=== PATIENT | female | born 1930 | race Caucasian/White ===

== ENCOUNTER 2017-07-08 13:17 | Inpatient (IN) | payer OTHER, MEDICARE ==
[~2017-07-08] VITALS: Ht 144.8 cm; Wt 49.0 kg
[~2017-07-08 13:17] MED LIST: ACT30 PO; AMLO-110 PO; AMLO-114 PO; ASPEC81 PO; CALC500C3 PO; CRG25 PO; INSDGI SC; LCTX PO; METR-163 PO; MULT-506 PO; OXYC-57 PO; SIMV10TA2 PO; SITA100T3 PO
[2017-07-08] MEDS ORDERED: ASPI81TA28 PO (14:33)
[2017-07-08] MEDS ORDERED: ACT/30 PO (14:33)
[2017-07-08] MEDS ORDERED: CARV25TA2 PO (14:33)
[2017-07-08] MEDS ORDERED: INSDGIPEN SC (14:33)
--- NOTE | 2017-07-08 15:17 | DIAGNOSTIC IMAGING REPORT ---
HEAD WITHOUT CONTRAST (CT) CLINICAL HISTORY: 87 years-old Female with fall 1 week ago. Acute head injury status post fall TECHNIQUE: Multiple axial CT images of the head were obtained without contrast. A dose lowering technique was utilized adhering to the principles of ALARA. COMPARISON: CT cervical spine of same day, CT head 07/04/2010 FINDINGS: No acute intracranial hemorrhage, midline shift, intracranial mass, hydrocephalus, territorial ischemia or abnormal extra-axial collection. Moderate atrophy with chronic migraines ischemic changes. Calcification of the tentorium and falx cerebri. The calvarium is intact. The paranasal sinuses, mastoid air cells, and middle ear cavities are clear.a questioned fracture involving the right posterior arch C1. IMPRESSION: 1. No acute intracranial abnormality. 2. Questioned acute fracture involving the right posterior arch C1. Please see CT cervical spine of same day for further details. The above report was generated using voice recognition software. It may contain grammatical, syntax or spelling errors. Electronically signed by: Joey Green M.D. 07/08/2017 3:15 PM Dictated Date/Time: 07/08/2017 3:12 PM
--- NOTE | 2017-07-08 15:22 | DIAGNOSTIC IMAGING REPORT ---
CT SCAN OF THE CERVICAL SPINE CLINICAL HISTORY: Fall one week ago. COMPARISON STUDY: CT scan of the facial bones dated 07/04/2010. TECHNIQUE: CT scan of the cervical spine is performed from the skull base to the upper thoracic spine. Images are reviewed in the axial, sagittal, and coronal planes. IV contrast was not administered for this examination. A dose lowering technique was utilized adhering to the principles of ALARA. CT DOSE: 897.34 mGy.cm FINDINGS: Skeletal structures: The skeletal structures are osteopenic. There is a minimally angulated fracture through the base of the odontoid process (type II). Additionally, there are fractures through the right and left ring of C1. Vertebral body height is maintained. There is 3 mm anterolisthesis at C4-C5. Minimal anterolisthesis is also seen at C5-C6 and C6-C7. Mild hyperlordosis is noted. The odontoid process and lateral masses are intact. The atlantoaxial articulation is preserved noting productive degenerative change with narrowing of the interval. The spinous processes appear intact. There is moderate to advanced multilevel cervical spondylosis. Uncovertebral and facet arthropathy contribute sterile foraminal stenosis at most levels. Intervertebral discs: Advanced disc space narrowing is seen at C5-C6 and C6-C7. Mild disc space narrowing is seen at the remaining cervical levels. Central canal: Posterior discussed by complex is at C4-C5 and C5-C6 likely contribute to mild acquired compromise of the central canal. Soft tissues: The prevertebral and paraspinous soft tissues are within normal limits. There is atherosclerotic calcification of the carotid bulbs. Calvarium: The visualized calvarium at the skull base appears intact. Brain parenchyma: Partially visualized brain parenchyma the skull base is within normal limits. Sinuses and mastoids: The visualized paranasal sinuses are clear. The mastoid air cells are well pneumatized. Lung apices: A calcified granuloma is noted in the right upper lobe. Apical lung parenchyma is otherwise clear as visualized. IMPRESSION: 1. There is a minimally angulated fracture through the base of the odontoid process (type II odontoid fracture). 2. There are fractures involving the right and left ring of C1. 3. Osteopenia and spondylotic change as above. Findings were discussed with Dr. Alvarez in the emergency department at the time of interpretation. Electronically signed by: Brian Zarate M.D. 07/08/2017 3:21 PM Dictated Date/Time: 07/08/2017 3:10 PM
--- NOTE | 2017-07-08 15:39 | DIAGNOSTIC IMAGING REPORT ---
CHEST 2 VIEWS ROUTINE HISTORY: 87 years-old Female fall 1 week ago acute fall with head injury COMPARISON: Chest radiograph 11/06/2010 TECHNIQUE: Portable AP and lateral views of the chest FINDINGS: Cardiac silhouette is enlarged. Atherosclerosis of the aorta. Lungs are mildly hypoinflated with bronchovascular crowding. Calcifications of the trachea bronchial tree are noted. No pneumothorax, pleural effusion, focal airspace consolidation or overt pulmonary edema. The bones appear osteoporotic. Degenerative changes noted within the shoulders and spine. IMPRESSION: Hypoinflation with bronchovascular crowding. No acute process of the chest identified. The above report was generated using voice recognition software. It may contain grammatical, syntax or spelling errors. Electronically signed by: Joey Green M.D. 07/08/2017 3:38 PM Dictated Date/Time: 07/08/2017 3:37 PM
--- NOTE | 2017-07-08 15:42 | DIAGNOSTIC IMAGING REPORT ---
SINGLE VIEW PELVIS CLINICAL HISTORY: Fall. FINDINGS: An AP pelvic radiograph is correlated with pelvic CT dated 11/06/2010. The skeletal structures are osteopenic. There is no radiographic evidence of fracture involving the hips or bony pelvis. Mild to moderate arthritic change and joint space narrowing is present in the hips. Sclerotic change is identified in the sacroiliac joints. Lumbosacral spondylosis is partially visualized. The overlying soft tissues are normal in appearance. Advanced atherosclerotic calcification is observed in the femoral arteries. Pelvic calcifications are similar to previous. IMPRESSION: Osteopenia with no radiographic evidence of acute fracture involving the hips or bony pelvis. Electronically signed by: Brian Zarate M.D. 07/08/2017 3:40 PM Dictated Date/Time: 07/08/2017 3:39 PM
--- NOTE | 2017-07-08 15:54 | DIAGNOSTIC IMAGING REPORT ---
LUMBAR SPINE 5 VIEWS CLINICAL HISTORY: Fall. FINDINGS: 5 views of the lumbar spine are correlated with abdominal CT dated 11/06/2010. The skeletal structures are osteopenic. There is no radiographic evidence of acute fracture or malalignment. Vertebral body height and alignment are maintained throughout the lumbar spine. There is straightening of the lumbar lordosis. The transverse and spinous processes appear intact. There is no evidence of spondylolysis. Advanced disc space narrowing with endplate sclerosis is seen at L4-L5. Moderate disc space narrowing seen at L5-S1. Mild disc space narrowing is seen at the remaining lumbar levels. Tiny anterior osteophytes are seen throughout. The bony pelvis is intact as imaged. Sclerotic change is identified in the sacroiliac joints. No bowel obstruction is identified. There is atherosclerotic calcification throughout the abdominal aorta. IMPRESSION: 1. No acute bony abnormality is seen involving the lumbar spine. 2. Osteopenia and spondylotic change as above. Dictated: 07/08/2017 3:36 PM Transcribed: 07/08/2017 3:54 PM [email or web address] Electronically signed by: Brian Zarate M.D. 07/08/2017 3:59 PM Dictated Date/Time: 07/08/2017 3:36 PM
[2017-07-08] MEDS ORDERED: MoRPHine SULFATE 4 MG/ML 1 ML CARP\\VIAL IV STA (16:04)
--- NOTE | 2017-07-08 16:04 | EMERGENCY ROOM VISIT NOTE ---
History First contact with patient: 13:49 Chief Complaint: FALL Stated Complaint: FALL, HEAD INJURY History of Present Illness The patient is a 87 year old female who presents to the Emergency Room with complaints of h/o mechanical fall 9 days ago. Reports walking with her cane to her bathroom at 0630 on Jun 29, tripped on the cane and hit her head on her sink and fell to the floor. Reports she was down for 3 hours, and finally scooted herself over to her phone in her bedroom and called her niece. Her niece , who is at bedside today, came and helped her to a chair, but reports pt didn' t complain of much and so they decided not to seek medical attention. Niece has been coming to pt's home since and helping with bathing, etc, and noted a " goose egg" on the top of her scalp and increasing bruising on pt's forehead. Niece reports yesterday noting that pt's walking was prohibited by her increasing pain in her lower back, and so decided to make an appt with the PCP. At appt today, PCP urged pt to seek attention at the ED for possible fractures. Pt's main complaint is pain in her lower back. Denies LOC, chest pain, SOB, melena or hematuria. Reports subjective decrease in urination and change in color of urine from clear to light yellow of late. Pt denies being on blood thinners. Review of Systems See HPI for pertinent positives and negatives. Past Medical/Surgical History Medical Problems: (1) Cervical vertebral closed fracture (2) Fall (3) HTN (hypertension) Social History Smoking Status: Never Smoker Marital Status: single Housing Status: lives alone (in a [address] [facility]. Ambulates with walker on first floor, but goes up stairs with only a cane.) Occupation Status: retired Current/Historical Medications Scheduled Amlodipine (Norvasc), 5 MG PO DAILY Aspirin (Aspirin Ec), 81 MG PO DAILY Carvedilol (Coreg), 25 MG PO BID Insulin Glargine (Lantus Solostar), 8 UNITS SC QPM Multivitamin (Multivitamin), 1 TAB PO DAILY Pioglitazone Hcl (Actos), 30 MG PO DAILY Simvastatin (Zocor), 10 MG PO QPM Sitagliptin Phosphate (Januvia), 50 MG PO DAILY Physical Exam Vital Signs Date Time Temp Pulse Resp B/P (MAP) Pulse Ox O2 Delivery O2 Flow Rate FiO2 07/08/17 16:39 69 20 194/67 95 07/08/17 14:49 72 20 183/61 96 Room Air 07/08/17 13:27 36.9 70 20 177/62 100 Room Air Physical Exam GENERAL: Awake, alert, well-appearing, in no distress. HENT: ++3 cmx 3 cm hematoma on top of scalp noted, with 2mm scab. Bruising on forehead. Oropharynx unremarkable. ++C-spine tenderness. EYES: Normal conjunctiva. Sclera non-icteric. NECK: Supple. ++C-spine tenderness. No nuchal rigidity. FROM. No JVD. RESPIRATORY: Clear to auscultation. CARDIAC: Regular rate, normal rhythm. Extremities warm and well perfused. Pulses equal. ABDOMEN: Soft, non-distended. No tenderness to palpation. No rebound or guarding. No masses. RECTAL: Deferred. MUSCULOSKELETAL: Chest examination reveals no tenderness. The back is symmetrical on inspection without obvious abnormality. No joint edema. ++ Bruising on left upper arm. LOWER EXTREMITIES: Calves are equal size bilaterally and non-tender. No edema. No discoloration. NEURO: Normal sensorium. No sensory or motor deficits noted. SKIN: No rash or jaundice noted. Medical Decision & Procedures Laboratory Results 07/08/17 16:10 Red Blood Count 3.57, Mean Corpuscular Volume 79.0, Mean Corpuscular Hemoglobin 26.1, Mean Corpuscular Hemoglobin Concent 33.0, Mean Platelet Volume 9.0, Neutrophils (%) (Auto) 69.1, Lymphocytes (%) (Auto) 19.9, Monocytes (%) (Auto) 8.3, Eosinophils (%) (Auto) 1.8, Basophils (%) (Auto) 0.5, Neutrophils # (Auto) 6.55, Lymphocytes # (Auto) 1.89, Monocytes # (Auto) 0.79, Eosinophils # (Auto) 0.17, Basophils # (Auto) 0.05 07/08/17 16:10 Test 07/08/17 16:10 White Blood Count 9.49 K/uL (4.8-10.8) Red Blood Count 3.57 M/uL (4.2-5.4) Hemoglobin 9.3 g/dL (12.0-16.0) Hematocrit 28.2 % (37-47) Mean Corpuscular Volume 79.0 fL (80-100) Mean Corpuscular Hemoglobin 26.1 pg (25-34) Mean Corpuscular Hemoglobin Concent 33.0 g/dl (32-36) Platelet Count 259 K/uL (130-400) Mean Platelet Volume 9.0 fL (7.4-10.4) Neutrophils (%) (Auto) 69.1 % Lymphocytes (%) (Auto) 19.9 % Monocytes (%) (Auto) 8.3 % Eosinophils (%) (Auto) 1.8 % Basophils (%) (Auto) 0.5 % Neutrophils # (Auto) 6.55 K/uL (1.4-6.5) Lymphocytes # (Auto) 1.89 K/uL (1.2-3.4) Monocytes # (Auto) 0.79 K/uL (0.11-0.59) Eosinophils # (Auto) 0.17 K/uL (0-0.5) Basophils # (Auto) 0.05 K/uL (0-0.2) RDW Standard Deviation 45.9 fL (36.4-46.3) RDW Coefficient of Variation 15.8 % (11.5-14.5) Immature Granulocyte % (Auto) 0.4 % Immature Granulocyte # (Auto) 0.04 K/uL (0.00-0.02) Prothrombin Time 11.4 SECONDS (9.0-12.0) Prothromb Time International Ratio 1.1 (0.9-1.1) Activated Partial Thromboplast Time 25.0 SECONDS (21.0-31.0) Partial Thromboplastin Ratio 1.0 Anion Gap 9.0 mmol/L (3-11) Est Creatinine Clear Calc Drug Dose 22.2 ml/min Estimated GFR () 48.3 Estimated GFR (Non- 41.7 BUN/Creatinine Ratio 20.8 (10-20) Calcium Level 9.2 mg/dl (8.5-10.1) Medications Administered Medications (Trade) Dose Ordered Sig/Nusrat Route Start Time Stop Time Status Last Admin Dose Admin Morphine Sulfate (MoRPHine SULFATE INJ) 4 mg NOW STAT IV 07/08/17 16:04 07/08/17 16:06 DC 07/08/17 16:[address] SCAN OF THE CERVICAL SPINE CLINICAL HISTORY: Fall one week ago. COMPARISON STUDY: CT scan of the facial bones dated 07/04/2010. TECHNIQUE: CT scan of the cervical spine is performed from the skull base to the upper thoracic spine. Images are reviewed in the axial, sagittal, and coronal planes. IV contrast was not administered for this examination. A dose lowering technique was utilized adhering to the principles of ALARA. CT DOSE: 897.34 mGy.cm FINDINGS: Skeletal structures: The skeletal structures are osteopenic. There is a minimally angulated fracture through the base of the odontoid process (type II). Additionally, there are fractures through the right and left ring of C1. Vertebral body height is maintained. There is 3 mm anterolisthesis at C4-C5. Minimal anterolisthesis is also seen at C5-C6 and C6-C7. Mild hyperlordosis is noted. The odontoid process and lateral masses are intact. The atlantoaxial articulation is preserved noting productive degenerative change with narrowing of the interval. The spinous processes appear intact. There is moderate to advanced multilevel cervical spondylosis. Uncovertebral and facet arthropathy contribute sterile foraminal stenosis at most levels. Intervertebral discs: Advanced disc space narrowing is seen at C5-C6 and C6-C7. Mild disc space narrowing is seen at the remaining cervical levels. Central canal: Posterior discussed by complex is at C4-C5 and C5-C6 likely contribute to mild acquired compromise of the central canal. Soft tissues: The prevertebral and paraspinous soft tissues are within normal limits. There is atherosclerotic calcification of the carotid bulbs. Calvarium: The visualized calvarium at the skull base appears intact. Brain parenchyma: Partially visualized brain parenchyma the skull base is within normal limits. Sinuses and mastoids: The visualized paranasal sinuses are clear. The mastoid air cells are well pneumatized. Lung apices: A calcified granuloma is noted in the right upper lobe. Apical lung parenchyma is otherwise clear as visualized. IMPRESSION: 1. There is a minimally angulated fracture through the base of the odontoid process (type II odontoid fracture). 2. There are fractures involving the right and left ring of C1. 3. Osteopenia and spondylotic change as above. Findings were discussed with Dr. Alvarez in the emergency department at the time of interpretation. Electronically signed by: Brian Zarate M.D. 07/08/2017 3:21 PM CHEST 2 VIEWS ROUTINE HISTORY: 87 years-old Female fall 1 week ago acute fall with head injury COMPARISON: Chest radiograph 11/06/2010 TECHNIQUE: Portable AP and lateral views of the chest FINDINGS: Cardiac silhouette is enlarged. Atherosclerosis of the aorta. Lungs are mildly hypoinflated with bronchovascular crowding. Calcifications of the trachea bronchial tree are noted. No pneumothorax, pleural effusion, focal airspace consolidation or overt pulmonary edema. The bones appear osteoporotic. Degenerative changes noted within the shoulders and spine. IMPRESSION: Hypoinflation with bronchovascular crowding. No acute process of the chest identified. The above report was generated using voice recognition software. It may contain grammatical, syntax or spelling errors. Electronically signed by: Joey Green M.D. 07/08/2017 3:38 PM Dictated Date/Time: 07/08/2017 3:37 PM - HEAD WITHOUT CONTRAST (CT) CLINICAL HISTORY: 87 years-old Female with fall 1 week ago. Acute head injury status post fall TECHNIQUE: Multiple axial CT images of the head were obtained without contrast. A dose lowering technique was utilized adhering to the principles of ALARA. COMPARISON: CT cervical spine of same day, CT head 07/04/2010 FINDINGS: No acute intracranial hemorrhage, midline shift, intracranial mass, hydrocephalus, territorial ischemia or abnormal extra-axial collection. Moderate atrophy with chronic migraines ischemic changes. Calcification of the tentorium and falx cerebri. The calvarium is intact. The paranasal sinuses, mastoid air cells, and middle ear cavities are clear.a questioned fracture involving the right posterior arch C1. IMPRESSION: 1. No acute intracranial abnormality. 2. Questioned acute fracture involving the right posterior arch C1. Please see CT cervical spine of same day for further details. The above report was generated using voice recognition software. It may contain grammatical, syntax or spelling errors. Electronically signed by: Joey Green M.D. 07/08/2017 3:15 PM Dictated Date/Time: 07/08/2017 3:12 PM - LUMBAR SPINE 5 VIEWS CLINICAL HISTORY: Fall. FINDINGS: 5 views of the lumbar spine are correlated with abdominal CT dated 11/06/2010. The skeletal structures are osteopenic. There is no radiographic evidence of acute fracture or malalignment. Vertebral body height and alignment are maintained throughout the lumbar spine. There is straightening of the lumbar lordosis. The transverse and spinous processes appear intact. There is no evidence of spondylolysis. Advanced disc space narrowing with endplate sclerosis is seen at L4-L5. Moderate disc space narrowing seen at L5-S1. Mild disc space narrowing is seen at the remaining lumbar levels. Tiny anterior osteophytes are seen throughout. The bony pelvis is intact as imaged. Sclerotic change is identified in the sacroiliac joints. No bowel obstruction is identified. There is atherosclerotic calcification throughout the abdominal aorta. IMPRESSION: 1. No acute bony abnormality is seen involving the lumbar spine. 2. Osteopenia and spondylotic change as above. Dictated: 07/08/2017 3:36 PM Transcribed: 07/08/2017 3:54 PM [facility] Electronically signed by: Brian Zarate M.D. 07/08/2017 3:59 PM Dictated Date/Time: 07/08/2017 3:36 PM - SINGLE VIEW PELVIS CLINICAL HISTORY: Fall. FINDINGS: An AP pelvic radiograph is correlated with pelvic CT dated 11/06/2010. The skeletal structures are osteopenic. There is no radiographic evidence of fracture involving the hips or bony pelvis. Mild to moderate arthritic change and joint space narrowing is present in the hips. Sclerotic change is identified in the sacroiliac joints. Lumbosacral spondylosis is partially visualized. The overlying soft tissues are normal in appearance. Advanced atherosclerotic calcification is observed in the femoral arteries. Pelvic calcifications are similar to previous. IMPRESSION: Osteopenia with no radiographic evidence of acute fracture involving the hips or bony pelvis. Electronically signed by: Brian Zarate M.D. 07/08/2017 3:40 PM Dictated Date/Time: 07/08/2017 3:39 PM ED Course 1349 saw and assessed pt [id number] of head w/o contrast, CT of C spine, xray pelvix and lumbosacral , CXR. UA. CT shows fracture of C1 and C2. Attending d/w ortho Dr. Lawson. Surgery not indicated at this time due to risk/benefit consideration. D/w pt - pt requests assistance with recovery, not comfortable going home as she lives by herself. Decision made to admit given pt's limited ambulation due to pain, and will be seen by Dr. Lawson while on inpatient. And arrangements will be made for inpatient rehab. Attending spoke with Dr. Yemi Fitzpatrick hospalist re: admission. Pt being admitted now. Medical Decision The patient is a 87 year old female who presents to the Emergency Room with complaints of h/o mechanical fall 9 days ago. Reports walking with her cane to her bathroom at 0630 on Jun 29, tripped on the cane and hit her head on her sink and fell to the floor. Reports she was down for 3 hours, and finally scooted herself over to her phone in her bedroom and called her niece. Her niece , who is at bedside today, came and helped her to a chair, but reports pt didn' t complain of much and so they decided not to seek medical attention. Niece has been coming to pt's home since and helping with bathing, etc, and noted a " goose egg" on the top of her scalp and increasing bruising on pt's forehead. Niece reports yesterday noting that pt's walking was prohibited by her increasing pain in her lower back, and so decided to make an appt with the PCP. At appt today, PCP urged pt to seek attention at the ED for possible fractures. Pt's main complaint is pain in her lower back. Denies LOC, chest pain, SOB, melena or hematuria. Reports subjective decrease in urination and change in color of urine from clear to light yellow of late. Pt denies being on blood thinners. DDX: fall, contusion, fracture of c-spine CT shows minimally angulated fracture through the base of the odontoid process ( type II), and fractures through the right and left ring of C1. Other imaging of chest, lumbar spine, head CT and pelvis all non-remarkable. Labs unremarkable except for moderate anemia. Decision made to admit given pt's uncontrolled pain and limited ambulation. Likely this patient will benefit from detention care and may not be able to return to her [address] [facility] home and live by herself anymore - she ambulates with a walker on the first floor, but only with a cane on the second floor. Given that while ambulating with a cane is when she tripped, accommodations may need to be made on a detention basis. Impression Primary Impression: C1 cervical fracture Additional Impressions: Odontoid fracture Fall Departure Information Dispostion Admitted as an inpatient (via [facility] service) Condition GOOD Patient Instructions My [facility] Resident Tracking Resident Involvement: Resident Care Provided Care Provided: Adult ED Problem Qualifiers
[2017-07-08 16:22] LABS: BASO % 0.5 %; BASO ABS # 0.05 K/uL (0-0.2); EOS % 1.8 %; EOS ABS # 0.17 K/uL (0-0.5); HEMATOCRIT 28.2 % (37-47); HEMOGLOBIN 9.3 g/dL (12.0-16.0); IG# 0.04 K/uL (0.00-0.02); LYMPH % 19.9 %; LYMPH ABS # 1.89 K/uL (1.2-3.4); MEAN CORPUSCULAR HEMOGLOBIN 26.1 pg (25-34); MONO % 8.3 %; MONO ABS # 0.79 K/uL (0.11-0.59); NEUT % 69.1 %; NEUT ABS # 6.55 K/uL (1.4-6.5); PLATELET COUNT 259 K/uL (130-400); RED CELL DISTRIBUTION WIDTH CV 15.8 % (11.5-14.5); RED CELL DISTRIBUTION WIDTH SD 45.9 fL (36.4-46.3); WHITE BLOOD COUNT 9.49 K/uL (4.8-10.8)
[2017-07-08 16:30] LABS: INR 1.1 (0.9-1.1)
[2017-07-08 16:41] LABS: CALCIUM 9.2 mg/dl (8.5-10.1); CREATININE 1.16 mg/dl (0.60-1.20); POTASSIUM 4.4 mmol/L (3.5-5.1)
--- NOTE | 2017-07-08 17:07 | EMERGENCY ROOM VISIT NOTE ---
History Report prepared by Luciano: Manish Santamaria Under the Supervision of: Dr. Lewis Alvarez M.D. First contact with patient: 13:48 Chief Complaint: FALL Stated Complaint: FALL, HEAD INJURY History of Present Illness The patient is a 87 year old female who presents to the Emergency Room with complaints of h/o mechanical fall 9 days ago. Reports walking with her cane to her bathroom at 0630 on Jun 29, tripped on the cane and hit her head on her sink and fell to the floor. Reports she was down for 3 hours, and finally scooted herself over to her phone in her bedroom and called her niece. Her niece , who is at bedside today, came and helped her to a chair, but reports pt didn' t complain of much and so they decided not to seek medical attention. Niece has been coming to pt's home since and helping with bathing, etc, and noted a " goose egg" on the top of her scalp and increasing bruising on pt's forehead. Niece reports yesterday noting that pt's walking was prohibited by her increasing pain in her lower back, and so decided to make an appt with the PCP. At appt today, PCP urged pt to seek attention at the ED for possible fractures. Pt's main complaint is constant pain in her lower back. Denies LOC, chest pain, SOB, melena or hematuria. Reports subjective decrease in urination and change in color of urine from clear to light yellow of late. Pt denies being on blood thinners. Source of History: patient, family (daughter) Onset: 9 days ago Quality: other (mechanical fall) Timing: other (episode) Associated Symptoms: + back pain (lower), + urinary symptoms (decreased output, change in color), No LOC, No chest pain, No melena Note: The patient denies hematuria. Review of Systems See HPI for pertinent positives and negatives. A total of ten systems were reviewed and were otherwise negative. Past Medical & Surgical Medical Problems: (1) Cervical vertebral closed fracture (2) Fall (3) HTN (hypertension) Family History No pertinent family history stated. Social History Smoking Status: Never Smoker Marital Status: single Occupation Status: retired Current/Historical Medications Scheduled Amlodipine (Norvasc), 5 MG PO DAILY Aspirin (Aspirin Ec), 81 MG PO DAILY Carvedilol (Coreg), 25 MG PO BID Insulin Glargine (Lantus Solostar), 8 UNITS SC QPM Multivitamin (Multivitamin), 1 TAB PO DAILY Pioglitazone Hcl (Actos), 30 MG PO DAILY Simvastatin (Zocor), 10 MG PO QPM Sitagliptin Phosphate (Januvia), 50 MG PO DAILY Allergies Coded Allergies: Sulfa Drugs (Verified Allergy, Unknown, unknown, 01/07/12) Physical Exam Vital Signs Date Time Temp Pulse Resp B/P (MAP) Pulse Ox O2 Delivery O2 Flow Rate FiO2 07/08/17 16:39 69 20 194/67 95 07/08/17 14:49 72 20 183/61 96 Room Air 07/08/17 13:27 36.9 70 20 177/62 100 Room Air Physical Exam GENERAL: Awake, alert, well-appearing, in no distress HENT: Normocephalic. Hematoma noted to the posterior head without active bleeding. no hemotympanum bilaterally, mccormick sign negative bilaterally. Oropharynx unremarkable. EYES: Normal conjunctiva. Sclera non-icteric. PERRL bilaterally. EOMI bilaterally. NECK: Supple. No nuchal rigidity. FROM. No JVD. C-spine tenderness to palpation. RESPIRATORY: Clear to auscultation. No wheezes, rhonchi or rales bilaterally. CARDIAC: Regular rate, normal rhythm. Extremities warm and well perfused. Equal palpable radial pulses to the bilateral upper extremities. Equal palpable DP pulses to the bilateral lower extremities. ABDOMEN: Soft, non-distended. No tenderness to palpation. No rebound or guarding. No masses. Rovsig Negative. RECTAL: Deferred. MUSCULOSKELETAL: Chest examination reveals no tenderness. Ecchymosis over left shoulder. The back is symmetrical on inspection without obvious abnormality. No thoracic or lumbar spine tenderness to palpation. Pelvis is stable to compression. There is no CVA tenderness to palpation. No joint edema. LOWER EXTREMITIES: Calves are equal size bilaterally and non-tender. No edema. No discoloration. NEURO: Normal sensorium. No sensory or motor deficits noted. No pronator drift. No facial droop. No dysarthria. Strength 5 out of 5 bilateral upper extremities. SKIN: No rash or jaundice noted. Medical Decision & Procedures ER Provider Diagnostic Interpretation: Radiology results as stated below per my review and radiologist interpretation: SINGLE VIEW PELVIS FINDINGS: An AP pelvic radiograph is correlated with pelvic CT dated 11/06/2010. The skeletal structures are osteopenic. There is no radiographic evidence of fracture involving the hips or bony pelvis. Mild to moderate arthritic change and joint space narrowing is present in the hips. Sclerotic change is identified in the sacroiliac joints. Lumbosacral spondylosis is partially visualized. The overlying soft tissues are normal in appearance. Advanced atherosclerotic calcification is observed in the femoral arteries. Pelvic calcifications are similar to previous. IMPRESSION: Osteopenia with no radiographic evidence of acute fracture involving the hips or bony pelvis. Electronically signed by: Brian Zarate M.D. 07/08/2017 3:40 PM LUMBAR SPINE 5 VIEWS FINDINGS: 5 views of the lumbar spine are correlated with abdominal CT dated 11/06/2010. The skeletal structures are osteopenic. There is no radiographic evidence of acute fracture or malalignment. Vertebral body height and alignment are maintained throughout the lumbar spine. There is straightening of the lumbar lordosis. The transverse and spinous processes appear intact. There is no evidence of spondylolysis. Advanced disc space narrowing with endplate sclerosis is seen at L4-L5. Moderate disc space narrowing seen at L5-S1. Mild disc space narrowing is seen at the remaining lumbar levels. Tiny anterior osteophytes are seen throughout. The bony pelvis is intact as imaged. Sclerotic change is identified in the sacroiliac joints. No bowel obstruction is identified. There is atherosclerotic calcification throughout the abdominal aorta. IMPRESSION: 1. No acute bony abnormality is seen involving the lumbar spine. 2. Osteopenia and spondylotic change as above. Dictated: 07/08/2017 3:36 PM Transcribed: 07/08/2017 3:54 PM [facility] Electronically signed by: Brian Zarate M.D. 07/08/2017 3:59 PM HEAD WITHOUT CONTRAST (CT) FINDINGS: No acute intracranial hemorrhage, midline shift, intracranial mass, hydrocephalus, territorial ischemia or abnormal extra-axial collection. Moderate atrophy with chronic migraines ischemic changes. Calcification of the tentorium and falx cerebri. The calvarium is intact. The paranasal sinuses, mastoid air cells, and middle ear cavities are clear.a questioned fracture involving the right posterior arch C1. IMPRESSION: 1. No acute intracranial abnormality. 2. Questioned acute fracture involving the right posterior arch C1. Please see CT cervical spine of same day for further details. The above report was generated using voice recognition software. It may contain grammatical, syntax or spelling errors. Electronically signed by: Joey Green M.D. 07/08/2017 3:15 PM CHEST 2 VIEWS ROUTINE FINDINGS: Cardiac silhouette is enlarged. Atherosclerosis of the aorta. Lungs are mildly hypoinflated with bronchovascular crowding. Calcifications of the trachea bronchial tree are noted. No pneumothorax, pleural effusion, focal airspace consolidation or overt pulmonary edema. The bones appear osteoporotic. Degenerative changes noted within the shoulders and spine. IMPRESSION: Hypoinflation with bronchovascular crowding. No acute process of the chest identified. The above report was generated using voice recognition software. It may contain grammatical, syntax or spelling errors. Electronically signed by: Joey Green M.D. 07/08/2017 3:[address] SCAN OF THE CERVICAL SPINE FINDINGS: Skeletal structures: The skeletal structures are osteopenic. There is a minimally angulated fracture through the base of the odontoid process (type II). Additionally, there are fractures through the right and left ring of C1. Vertebral body height is maintained. There is 3 mm anterolisthesis at C4-C5. Minimal anterolisthesis is also seen at C5-C6 and C6-C7. Mild hyperlordosis is noted. The odontoid process and lateral masses are intact. The atlantoaxial articulation is preserved noting productive degenerative change with narrowing of the interval. The spinous processes appear intact. There is moderate to advanced multilevel cervical spondylosis. Uncovertebral and facet arthropathy contribute sterile foraminal stenosis at most levels. Intervertebral discs: Advanced disc space narrowing is seen at C5-C6 and C6-C7. Mild disc space narrowing is seen at the remaining cervical levels. Central canal: Posterior discussed by complex is at C4-C5 and C5-C6 likely contribute to mild acquired compromise of the central canal. Soft tissues: The prevertebral and paraspinous soft tissues are within normal limits. There is atherosclerotic calcification of the carotid bulbs. Calvarium: The visualized calvarium at the skull base appears intact. Brain parenchyma: Partially visualized brain parenchyma the skull base is within normal limits. Sinuses and mastoids: The visualized paranasal sinuses are clear. The mastoid air cells are well pneumatized. Lung apices: A calcified granuloma is noted in the right upper lobe. Apical lung parenchyma is otherwise clear as visualized. IMPRESSION: 1. There is a minimally angulated fracture through the base of the odontoid process (type II odontoid fracture). 2. There are fractures involving the right and left ring of C1. 3. Osteopenia and spondylotic change as above. Findings were discussed with Dr. Alvarez in the emergency department at the time of interpretation. Electronically signed by: Brian Zarate M.D. 07/08/2017 3:21 PM Laboratory Results 07/08/17 16:10 Red Blood Count 3.57, Mean Corpuscular Volume 79.0, Mean Corpuscular Hemoglobin 26.1, Mean Corpuscular Hemoglobin Concent 33.0, Mean Platelet Volume 9.0, Neutrophils (%) (Auto) 69.1, Lymphocytes (%) (Auto) 19.9, Monocytes (%) (Auto) 8.3, Eosinophils (%) (Auto) 1.8, Basophils (%) (Auto) 0.5, Neutrophils # (Auto) 6.55, Lymphocytes # (Auto) 1.89, Monocytes # (Auto) 0.79, Eosinophils # (Auto) 0.17, Basophils # (Auto) 0.05 07/08/17 16:10 Test 07/08/17 16:10 White Blood Count 9.49 K/uL (4.8-10.8) Red Blood Count 3.57 M/uL (4.2-5.4) Hemoglobin 9.3 g/dL (12.0-16.0) Hematocrit 28.2 % (37-47) Mean Corpuscular Volume 79.0 fL (80-100) Mean Corpuscular Hemoglobin 26.1 pg (25-34) Mean Corpuscular Hemoglobin Concent 33.0 g/dl (32-36) Platelet Count 259 K/uL (130-400) Mean Platelet Volume 9.0 fL (7.4-10.4) Neutrophils (%) (Auto) 69.1 % Lymphocytes (%) (Auto) 19.9 % Monocytes (%) (Auto) 8.3 % Eosinophils (%) (Auto) 1.8 % Basophils (%) (Auto) 0.5 % Neutrophils # (Auto) 6.55 K/uL (1.4-6.5) Lymphocytes # (Auto) 1.89 K/uL (1.2-3.4) Monocytes # (Auto) 0.79 K/uL (0.11-0.59) Eosinophils # (Auto) 0.17 K/uL (0-0.5) Basophils # (Auto) 0.05 K/uL (0-0.2) RDW Standard Deviation 45.9 fL (36.4-46.3) RDW Coefficient of Variation 15.8 % (11.5-14.5) Immature Granulocyte % (Auto) 0.4 % Immature Granulocyte # (Auto) 0.04 K/uL (0.00-0.02) Prothrombin Time 11.4 SECONDS (9.0-12.0) Prothromb Time International Ratio 1.1 (0.9-1.1) Activated Partial Thromboplast Time 25.0 SECONDS (21.0-31.0) Partial Thromboplastin Ratio 1.0 Anion Gap 9.0 mmol/L (3-11) Est Creatinine Clear Calc Drug Dose 22.2 ml/min Estimated GFR () 48.3 Estimated GFR (Non- 41.7 BUN/Creatinine Ratio 20.8 (10-20) Calcium Level 9.2 mg/dl (8.5-10.1) Laboratory results reviewed by me Medications Administered Medications (Trade) Dose Ordered Sig/Nusrat Route Start Time Stop Time Status Last Admin Dose Admin Morphine Sulfate (MoRPHine SULFATE INJ) 4 mg NOW STAT IV 07/08/17 16:04 07/08/17 16:06 DC 07/08/17 16:36 4 MG ED Course 1330: The patient was evaluated in room B7. A complete history and physical exam was performed. 1554: Discussed the patient's case with Dr. Lawson. He states that given the patient's age, lack of neurologic deficits, and fall occurring over a week ago, he would not normally do surgery on this kind of fracture. He states that the risk is often too great given her age and co-morbidities. I discussed this with the patient, who states that she does not feel comfortable going home alone. She would like to be placed in an acute care facility for fear of falling again. 1604: Ordered Morphine Sulfate Inj 4 mg IV. 1650: Patient's vital signs are stable. His labs are within normal limits. The patient to be admitted for possible LTAC placement because she does not feel comfortable going home to take care of her spinal fracture. She is concerned she will continue to fall. The patient will be seen by Ortho-spine tomorrow, though they do not plan on doing surgery at the moment. The patient will be admitted by the hospitalist service. Medical Decision Discussed the patient's case with Dr. Lawsno. He states that given the patient' s age, lack of neurologic deficits, and fall occurring over a week ago, he would not normally do surgery on this kind of fracture. He states that the risk is often too great given her age and co-morbidities. I discussed this with the patient, who states that she does not feel comfortable going home alone. She would like to be placed in an acute care facility for fear of falling again. Patient's vital signs are stable. His labs are within normal limits. The patient to be admitted for possible LTAC placement because she does not feel comfortable going home to take care of her spinal fracture. She is concerned she will continue to fall. The patient will be seen by Ortho-spine tomorrow, though they do not plan on doing surgery at the moment. The patient will be admitted by the hospitalist service. Medication Reconcilliation Current Medication List: was personally reviewed by me Blood Pressure Screening Patient's blood pressure: Elevated blood pressure Blood pressure disposition: Referred to PCP Consults Time Called: 1550 Consulting Physician: Dr. Lawson - Orthopedics Returned Call: [phone] Discussed the patient's case. Dr. Lawson states that given the patient's age, lack of neurologic deficits, and fall occurring over a week ago, he would not normally do surgery on this kind of fracture. He states that the risk is often too great given her age and co-morbidities. Additional Consults: Time Called: 1650 Consulted Physician: Dr. Yemi Fitzpatrick Hospitalist Returned Call: [phone] Additional Comments: Discussed the patient's case. The patient will be evaluated for further treatment and disposition. Impression Primary Impression: Odontoid fracture Additional Impressions: C1 cervical fracture Fall Scribe Attestation The scribe's documentation has been prepared under my direction and personally reviewed by me in its entirety. I confirm that the note above accurately reflects all work, treatment, procedures, and medical decision making performed by me. The chart was completed utilizing [employer] voice recognition software. Grammatical errors, random word insertions, pronoun errors, and incomplete sentences are an occasional consequence of this system due to software limitations, ambient noise, and hardware issues. Any formal questions or concerns about the content, text, or information contained within the body of this dictation should be directly addressed to the physician for clarification. Departure Information Dispostion Being Evaluated By Hospitalist Referrals Wilfred Burrell D.O. (PCP) Patient Instructions [facility] Problem Qualifiers
[2017-07-08] MEDS ORDERED: GLUCAGON FOR INJ 1 MG VIAL SQ PRN (17:15)
[2017-07-08] MEDS ORDERED: ALUMINUM/MAGNESIUM/SIMETH (MAALOX MAX) 30 ML UDC PO PRN (17:15)
[2017-07-08] MEDS ORDERED: GLUCOSE 40% GEL 15 GM TUBE PO PRN (17:15)
[2017-07-08] MEDS ORDERED: MoRPHine SULFATE 2 MG/ML CARP IV PRN (17:15)
[2017-07-08] MEDS ORDERED: DEXTROSE 50% 50 ML SYR IV PRN (17:15)
[2017-07-08] MEDS ORDERED: GLUCOSE 10 TABS/TUBE PO PRN (17:15)
[2017-07-08] MEDS ORDERED: MoRPHine SULFATE 4 MG/ML 1 ML CARP\\VIAL IV PRN (17:15)
[2017-07-08] MEDS ORDERED: ONDANSETRON INJ 2 MG/ML 2 ML VIAL IV PRN (17:15)
[2017-07-08] MEDS ORDERED: MAGNESIUM HYDROXIDE SUSP 30 ML UDC PO PRN (17:15)
[2017-07-08] MEDS ORDERED: POLYETHYLENE (MIRALAX) 17 GM PACK PO PRN (17:15)
[2017-07-08] MEDS ORDERED: SODIUM CHLORIDE 0.9% 1000ML 1,000 ML IV SCH (17:15)
[2017-07-08] MEDS ORDERED: ONDANSETRON INJ 2 MG/ML 2 ML VIAL ONE (17:39)
[2017-07-08 18:22] VITALS: BP 197/71; PULSE 73; TEMP 36.7; O2SAT 94
--- NOTE | 2017-07-08 18:42 | History and Physical ---
History & Physical Date & Time of Service: Jul 08, 2017 at 18:40 Chief Complaint: Cervical Vertebral Closed Fracture, Fall Primary Care Physician: Wilfred Burrell D.O. History of Present Illness Source: patient, family (niece at bedside) This is an 87yo F with PMH of DM II, HTN, CKD III, HLD and pernicious anemia who presents after a mechanical fall last 9 days ago. Patient lives alone and ambulates by cane. Was walking to the bathroom when her cane got caught and she fell onto the floor in a twisting motion, hitting her head on the counter and falling onto her backside. Was unable to get up from floor for 3 hours. Scooted herself into her bedroom phone to call her niece. It took her niece and another person to get patient back in bed. Reports that she was not in enough pain to see her PCP or go to the ED. Has been taking extra strength Tylenol for pain from fall. Noticed a bump form on her head but states that she did not have any headache or confusion. Has bruising on her left arm and back. Niece noticed that patient continued to seem generally weak, ambulating very slowly, so she made appointment with PCP. Patient was sent from the office for further evaluation. Endorses back and knee pain (chronic), generalized weakness, decreased PO intake and nausea. Had an episode of vomiting during our interview after being given morphine. Denies any fever, chills, lightheadedness, dizziness , headache, LOC, visual changes, palpitations, chest pain, SOB, abdominal pain, dysuria, melena, hematochezia or LE swelling. Denies being on blood thinners. Past Medical/Surgical History Medical Problems: (1) Chronic lower back pain Status: Chronic (2) CKD (chronic kidney disease), stage III Status: Chronic (3) Diabetes mellitus, type II Status: Chronic (4) HLD (hyperlipidemia) Status: Chronic (5) HTN (hypertension) Status: Chronic (6) Osteoarthritis Status: Chronic (7) Pernicious anemia Status: Chronic Family History Non-contributory due to patient's age. Social History Smoking Status: Never Smoker Alcohol Use: none Marital Status: single Housing status: lives alone Occupational Status: retired Immunizations History of Influenza Vaccine: N/A History of Tetanus Vaccine?: Yes Tetanus Immunization Date: Jul 09, 2010 History of Pneumococcal: Yes Pneumococcal Date: Mar 08, 2010 History of Hepatitis B Vaccine: Unknown Multi-Drug Resistant Organisms History of MDRO: No Allergies Coded Allergies: Sulfa Drugs (Verified Allergy, Unknown, unknown, 01/07/12) Home Medications Scheduled Amlodipine (Norvasc), 5 MG PO DAILY Aspirin (Aspirin Ec), 81 MG PO DAILY Calcium/Vitamin D (Os-[place]illy 500 Plus D), 1 TAB PO DAILY Carvedilol (Coreg), 1 TAB PO BIDM Cyanocobalamin (Cyanocobalamin), 1,000 MCG INJ MONTHLY Insulin Glargine (Lantus Solostar), 8 UNITS SC QPM Lactobacillus (Acidophilus), 1 CAP PO DAILY Lisinopril (Lisinopril), 1 TAB PO HS Multivitamin (Multivitamin), 1 TAB PO DAILY Pantoprazole (Protonix), 40 MG PO DAILY Repaglinide (Prandin), 2 MG PO AC Simvastatin (Zocor), 10 MG PO QPM Scheduled PRN Acetaminophen (Tylenol Extra Strength), 1 TAB PO Q6 PRN for Pain Review of Systems Ten systems reviewed and negative except as noted in the HPI. Physical Exam Vital Signs Date Time Temp Pulse Resp B/P (MAP) Pulse Ox O2 Delivery O2 Flow Rate FiO2 07/08/17 18:22 36.7 73 18 197/71 (113) 94 Room Air 07/08/17 17:34 69 20 194/67 95 07/08/17 16:39 69 20 194/67 95 07/08/17 14:49 72 20 183/61 96 Room Air 07/08/17 13:27 36.9 70 20 177/62 100 Room Air General Appearance: + mild distress, + pertinent finding (Sitting upright in med, breating comfortably) Head: normocephalic, atraumatic, + evidence of trama (Hematoma on posterior aspect of skull. Some bruising on L frontal region) Eyes: normal inspection, PERRL, sclerae normal ENT: normal ENT inspection (hard of hearing ), pharynx normal (moist mucous membranes ) Neck: + pertinent finding (C-collar ) Respiratory/Chest: chest non-tender, lungs clear, normal breath sounds, no respiratory distress, no accessory muscle use Cardiovascular: regular rate, rhythm, no murmur, normal peripheral pulses Abdomen/GI: non tender, soft, no organomegaly Back: normal inspection Extremities/Musculoskelatal: normal inspection, no calf tenderness, no pedal edema Neurologic/Psych: chiropractor assistant II-XII nml as tested, no motor/sensory deficits, alert, normal mood/affect, oriented x 3 Skin: warm/dry, no rash, + pallor, + pertinent finding (Bruising on L side of back, L arm. No deformities ) Diagnostics Laboratory Results Results Past 24 Hours Test 07/08/17 16:10 Range/Units White Blood Count 9.49 4.8-10.8 K/uL Red Blood Count 3.57 4.2-5.4 M/uL Hemoglobin 9.3 12.0-16.0 g/dL Hematocrit 28.2 37-47 % Mean Corpuscular Volume 79.0 80-100 fL Mean Corpuscular Hemoglobin 26.1 25-34 pg Mean Corpuscular Hemoglobin Concent 33.0 32-36 g/dl Platelet Count 259 130-400 K/uL Mean Platelet Volume 9.0 7.4-10.4 fL Neutrophils (%) (Auto) 69.1 % Lymphocytes (%) (Auto) 19.9 % Monocytes (%) (Auto) 8.3 % Eosinophils (%) (Auto) 1.8 % Basophils (%) (Auto) 0.5 % Neutrophils # (Auto) 6.55 1.4-6.5 K/uL Lymphocytes # (Auto) 1.89 1.2-3.4 K/uL Monocytes # (Auto) 0.79 0.11-0.59 K/uL Eosinophils # (Auto) 0.17 0-0.5 K/uL Basophils # (Auto) 0.05 0-0.2 K/uL RDW Standard Deviation 45.9 36.4-46.3 fL RDW Coefficient of Variation 15.8 11.5-14.5 % Immature Granulocyte % (Auto) 0.4 % Immature Granulocyte # (Auto) 0.04 0.00-0.02 K/uL Prothrombin Time 11.4 9.0-12.0 SECONDS Prothromb Time International Ratio 1.1 0.9-1.1 Activated Partial Thromboplast Time 25.0 21.0-31.0 SECONDS Partial Thromboplastin Ratio 1.0 Sodium Level 133 136-145 mmol/L Potassium Level 4.4 3.5-5.1 mmol/L Chloride Level 102 98-107 mmol/L Carbon Dioxide Level 22 21-32 mmol/L Anion Gap 9.0 3-11 mmol/L Blood Urea Nitrogen 24 7-18 mg/dl Creatinine 1.16 0.60-1.20 mg/dl Est Creatinine Clear Calc Drug Dose 22.2 ml/min Estimated GFR () 48.3 Estimated GFR (Non- 41.7 BUN/Creatinine Ratio 20.8 10-20 Random Glucose 104 70-99 mg/dl Calcium Level 9.2 8.5-10.1 mg/dl Diagnostic Radiology Head CT: IMPRESSION: 1. No acute intracranial abnormality. 2. Questioned acute fracture involving the right posterior arch C1. Please see CT cervical spine of same day for further details. CT cervical spine: IMPRESSION: 1. There is a minimally angulated fracture through the base of the odontoid process (type II odontoid fracture). 2. There are fractures involving the right and left ring of C1. 3. Osteopenia and spondylotic change as above. CXR: IMPRESSION: Hypoinflation with bronchovascular crowding. No acute process of the chest identified. Lumbar spine XR: IMPRESSION: 1. No acute bony abnormality is seen involving the lumbar spine. 2. Osteopenia and spondylotic change as above. Pelvic XR: IMPRESSION: Osteopenia with no radiographic evidence of acute fracture involving the hips or bony pelvis. Impression Assessment and Plan This is an 87yo F with PMH of DM II, HTN, CKD III, HLD and pernicious anemia who presents after a mechanical fall last 9 days ago. Patient lives alone and ambulates by cane. Cervical spine fractures: -S/p mechanical fall 9 days ago -CT cervical spine with odontoid and C1 fractures -CT head, lumbar spine and pelvis XR without acute abnormalities -Ortho-spine consulted -Given patient's age, lack of neuro deficits and length of time since fall, surgery is not indicated -Rehab facility placement since patient lives alone, at risk of falling again -Wear C-collar at all times besides eating -Will see patient tomorrow -Hold baby aspirin. SCDs/teds until evaluated by ortho -Neurovascular checks Q4 -PT/OT evaluation and conditioning -Scheduled IV tylenol -Discharge planning Nausea and vomiting: -Occurred after being administered morphine -Hold morphine, switched to IV tylenol give antiemetics PRN -Clear liquid diet HTN: -2/2 pain, anxiety -Unable to tolerate PO meds -Given IV hydralazine 10mg Q8 for SBP >160 -Plan to continue home meds in AM -Monitor DM II: -A1c of 8.7 on Jun 15 2017 -Continue home dose lantus 8U HS -Sliding scale -Hold prandin -BG checks AC HS Pernicious anemia: -Hgb of 9.49. Has been steadily downtrending from 11 -Could be contributing to generally weak state -Receives monthly B12 injections. Due for next on 07/16 CKD III: -Cr of 1.16, GFR of 42 (at baseline) -Avoid nephrotoxic agents when able -Monitor HLD: -Cont statin DVT Ppx: SCDs, teds Code status: DNR per discussion with patient PCP: Indra Dispo: Admitted to [facility]. Discharge planning ordered for rehab placement Patient seen in collaboration with Dr. Bragg. Please see addendum. ATTENDING ADDENDUM ; pt seen and examined, care co ordinated with Genny Li PA-C 87 yo f hx of recent fall ~9 days back , sent to ER by her family physician for concern for possible fx CT of cervical spine shows non displaced fx of C1/C2 odontoid process Fx C -collar placed Spinal orthopedics Dr Lawson consulted given advanced age, co -mobidities -recommends conservation management no emergent spinal surgery needed Admit to Medical fall fall precaution , cont cervical spine support with C Collar PT/OT may need rehab -lives alone , recent fall with cervical fx leading to significant ambulatory dysfunction /balance instability DNR/DNI please refer to Genny Li PA-C documentation for further documentation of other issues Hazel Brgag MD Level of Care Med/Surg Resuscitation Status DO NOT RESUSCITATE VTE Prophylaxis VTE Risk Assessment Done? Y/N: Yes Risk Level: Moderate Given or contraindicated: SCD's
[2017-07-08 18:56] VITALS: Ht 144.8 cm; Wt 49.0 kg
[2017-07-08] MEDS ORDERED: PROMETHAZINE HCL INJ 25 MG in SODIUM CHLORIDE 0.9% 50ML 50 ML IV STA (18:59)
[2017-07-08] MEDS ORDERED: CARVEDILOL 25 MG TAB PO ONE (19:00)
[2017-07-08] MEDS ORDERED: HydrALAZINE HCL 20 MG/ML VIAL IV. PRN (19:00)
[2017-07-08] MEDS ORDERED: AMLODIPINE BESYLATE 5 MG TAB PO ONE (19:00)
[2017-07-08] MEDS ORDERED: PROMETHAZINE HCL INJ 25 MG in SODIUM CHLORIDE 0.9% 50ML 50 ML IV PRN (19:00)
--- NOTE | 2017-07-08 19:07 | EMERGENCY ROOM VISIT NOTE ---
ED Visit Note First contact with patient: 13:48 The patient was seen and examined with Dr. Gonzalez resident. I agree with the history, physical and findings. Please see the note for disposition and details.
[2017-07-08] MEDS ORDERED: ACETAMINOPHEN IV 100 ML IV PRN (19:45)
[2017-07-08 20:14] VITALS: BP 163/67
[2017-07-08] MEDS ORDERED: REPA2TAB12 PO (20:24)
[2017-07-08] MEDS ORDERED: CALC500C70 PO (20:24)
[2017-07-08] MEDS ORDERED: CARV12.52 PO (20:24)
[2017-07-08] MEDS ORDERED: CYNI1000 INJ (20:24)
[2017-07-08] MEDS ORDERED: LSN20 PO (20:24)
[2017-07-08] MEDS ORDERED: ACET-1257 PO (20:24)
[2017-07-08] MEDS ORDERED: PANT40TA PO (20:24)
[2017-07-08] MEDS ORDERED: LACTCAP3 PO (20:24)
[2017-07-08] MEDS ORDERED: ACETAMINOPHEN IV 100 ML IV SCH (20:45)
[2017-07-08] MEDS: SIMVASTATIN 10 MG TAB PO SCH (21:00)
[2017-07-08] MEDS ORDERED: CARVEDILOL 25 MG TAB PO SCH (21:00)
[2017-07-08] MEDS: DOCUSATE SODIUM 100 MG CAP PO SCH (21:00)
[2017-07-08] MEDS ORDERED: LISINOPRIL 20 MG TAB PO SCH (21:00)
[2017-07-08] MEDS: INSULIN ASPART 100 UNITS/ML 3 ML PEN SC SCH (21:05)
[2017-07-08] MEDS: INSULIN GLARGINE SOLOSTAR 100 UNITS/ML 3 ML PEN SC SCH (21:08)
[2017-07-08] MEDS: ACETAMINOPHEN IV SCH (21:20)
[2017-07-08 23:16] VITALS: BP 163/67; PULSE 86; TEMP 36.4; O2SAT 97
[2017-07-09] MEDS: ACETAMINOPHEN IV SCH ×3 (05:23→20:54)
[2017-07-09 07:40] VITALS: BP 146/52; PULSE 72; TEMP 36.7; O2SAT 93
[2017-07-09] MEDS: INSULIN ASPART 100 UNITS/ML 3 ML PEN SC SCH ×4 (08:00→20:56)
[2017-07-09 08:25] VITALS: O2SAT 93
--- NOTE | 2017-07-09 08:53 | ORTHOPEDIC CONSULTATION ---
DATE OF ADMISSION: 07/09/2017 Approximately at 8:10 in the morning. HISTORY OF PRESENT ILLNESS: Nhung is delightful. She is 87 elderly female, a little hard of hearing. She had a reported fall walking to the bathroom, her cane got up. She fell to the floor. She hit her head. She hit her cervical spine. She was on the floor for several hours. She was able to get to the bathroom, get a hold of her knees. The patient was able to get the Emergency Room for evaluation and treatment. She does have a documented cervical spine injury with a C2 fracture, which is the odontoid all legitimate injuries. PAST MEDICAL HISTORY: Hard of hearing, chronic low back pain, stage III kidney disease, diabetes, hyperlipidemia, hypertension, pernicious anemia. SOCIAL HISTORY: Nonsmoker, single, lives alone, retired. MEDICATIONS: Reviewed. OBJECTIVE: VITAL SIGNS: Stable. Blood pressure is elevated at 190/70. Pulse is relatively regular at 80 beats per minute. HEENT: Pupils reactive to light and accommodation. Ear, nose and throat clear. I did take off the collar to inspect her. She had some residual tenderness, nothing out of the ordinary. NEUROLOGIC: Intact, 5/5 strength, good sensation, no motor neuron deficits. HEART AND LUNG: Normal. ABDOMEN: Soft and nontender. IMAGING STUDIES: Images reviewed demonstrated a minimally displaced type 2 odontoid fracture. There are fractures involving the ring on the left of C1. There is some osteopenia. There is some subluxation at the L4-L5 region, cervical spine, chronic. IMPRESSION: Includes a delightful patient with multiple comorbidities, elderly, hard of hearing, lives alone. She has a cervical spine injury as dictated. PLAN: I think the admission is absolutely the appropriate pathway. It would be unsafe to send her home for an assortment of reasons. I am treating her with a cervical collar. It is fairly rigid. I think we can get by without a surgical intervention. If there is a change in her neurological status, which can be subtle or a change in her radiographic findings as well such as a worsening of her C2 injury, then she may require a surgical intervention. I will be away Wednesday and Wednesday of this weekend. If she has a gross deterioration of her neurological issue, then she would need to be transferred from [facility] to [facility] or [facility]. [facility]
[2017-07-09] MEDS ORDERED: SITAGLIPTIN 25 MG TAB PO SCH (09:00)
[2017-07-09 09:19] LABS: HEMATOCRIT 27.3 % (37-47); HEMOGLOBIN 8.8 g/dL (12.0-16.0); MEAN CELL VOLUME 80.5 fL (80-100); MEAN CORPUSCULAR HGB CONC 32.2 g/dl (32-36); MEAN PLATELET VOLUME 9.1 fL (7.4-10.4); PLATELET COUNT 262 K/uL (130-400); RED CELL DISTRIBUTION WIDTH SD 46.8 fL (36.4-46.3); WHITE BLOOD COUNT 9.09 K/uL (4.8-10.8)
[2017-07-09] MEDS: MULTIVITAMIN TAB PO SCH (09:23)
[2017-07-09] MEDS: AMLODIPINE BESYLATE 5 MG TAB PO SCH (09:24)
[2017-07-09] MEDS: PANTOprazole SOD 40 MG TAB PO SCH (09:25)
[2017-07-09] MEDS: CALCIUM 600MG + VIT D 400 IU TAB PO SCH (09:25)
[2017-07-09] MEDS: CARVEDILOL 12.5 MG TAB PO SCH ×2 (09:25→18:18)
[2017-07-09] MEDS: DOCUSATE SODIUM 100 MG CAP PO SCH ×2 (09:25→20:49)
[2017-07-09 09:39] LABS: CALCIUM 8.6 mg/dl (8.5-10.1); CREATININE 1.01 mg/dl (0.60-1.20); POTASSIUM 4.4 mmol/L (3.5-5.1)
[2017-07-09 15:34] VITALS: BP 137/60; PULSE 60; TEMP 36.7; O2SAT 89
[2017-07-09 18:15] VITALS: O2SAT 94
--- NOTE | 2017-07-09 19:13 | PROGRESS NOTE ---
DATE: 07/09/2017 Ada is resting comfortably tonight with her cervical spine collar in place. Taking p.o. Minimal complaints of pain. She looks remarkably improved. Neurologically intact. Vital signs stable. Images reviewed. IMPRESSION: An 87-year-old female with type 2 odontoid fracture plus fracture of C1, nondisplaced, and some degenerative changes. PLAN: Because of her other comorbidities and age, we will treat her nonoperatively. We will keep her on the collar, this may come off to eat. I anticipate her being discharged to a rehab/[facility] type facility tomorrow, 07/10/2017, probably 07/11/2017, and might have to wait until even Wednesday. We can get her up and ambulatory. I have written orders for physical therapy, occupational therapy, and again hopefully discharge from the acute care facility here in the next 24-48 hours. I should see her back in the office in the next week. The office number is [phone]. The patient or custody of the patient should call that number to make the followup appointment. Once again, the collar should be worn at all times except to be taken off to eat and for some basic hygiene.
--- NOTE | 2017-07-09 20:08 | Progress Note ---
Internal Med Progress Note Date of Service: Jul 09, 2017. Provider Documentation: SUBJECTIVE: on neck collar says has some soreness in her lower back but otherwise no pain no chest pain or sob 'afebrile no nausea seems comfortable somewhat hard of hearing OBJECTIVE: Vital Signs-as noted below Exam: General-alert and oriented. Not in distress. Old and frail ENT-hard of hearing Neck-in rigid collar Lungs-cta b/l no wheezing or crackles Heart-S 1 and S 2heard regular rate and rhythm no murmurs Abdomen-soft bowel sounds present non tender no distension Extremities-no edema no erythema Neuro-alert and awake moves extremities Lab data as noted below. ASSESSMENT & PLAN: This is an 87yo F with PMH of DM II, HTN, CKD III, HLD and pernicious anemia who presents after a mechanical fall last 9 days ago. Patient lives alone and ambulates by cane. Cervical spine fractures: S/p mechanical fall [address] cervical spine with odontoid and C1 fractures CT head, lumbar spine and pelvis XR unremarkable -Ortho-spine consulted and recommends conservative approach on neck collar to keep it all times except while eating or basic hygiene pt/ot await placement Ortho wants to followup as out patient - Nausea and vomiting: Occurred after being administered morphine Held morphine and switched to IV tylenol give antiemetics PRN currently on full liquid diet to advance as tolerated. HTN: 2/2 pain, anxiety home meds lisinopril, coreg and amlodipine 'iv hydralazine prn will monitor DM II: A1c of 8.7 on Jun 15 2017 on home dose lantus 8U HS Sliding scale Holding prandin will monitor Pernicious anemia: Hgb of 9.49. Has been steadily downtrending from 11 Receives monthly B12 injections. Due for next on 07/16 f/u labs CKD III: Cr of 1.16, GFR of 42 (at baseline) f/u labs HLD: on statin DVT Ppx: SCDs, teds Code status: DNR per admission DISPOSITION pt/ot plan for placement social service for d/c planning Vital Signs: Date Time Temp Pulse Resp B/P (MAP) Pulse Ox O2 Delivery O2 Flow Rate FiO2 07/09/17 16:15 Room Air 07/09/17 15:34 36.7 60 16 137/60 (85) 89 Room Air 60 07/09/17 08:25 93 Room Air 07/09/17 07:40 36.7 72 14 146/52 (83) 93 Room Air 07/09/17 07:30 Room Air 07/09/17 00:15 Room Air 07/08/17 23:16 36.4 86 15 163/67 (99) 97 Room Air 07/08/17 20:14 163/67 (99) Lab Results: Results Past 24 Hours Test 07/08/17 20:26 07/09/17 00:00 07/09/17 08:13 07/09/17 08:19 Range/Units Bedside Glucose 228 81 70-90 mg/dl Urine Color YELLOW Urine Appearance CLEAR CLEAR Urine pH 5.0 4.5-7.5 Urine Specific [place] 1.010 1.000-1.030 Urine Protein NEG NEG Urine Glucose (UA) NEG NEG Urine Ketones NEG NEG Urine Occult Blood NEG NEG Urine Nitrite NEG NEG Urine Bilirubin NEG NEG Urine Urobilinogen NEG NEG Urine Leukocyte Esterase NEG NEG White Blood Count 9.09 4.8-10.8 K/uL Red Blood Count 3.39 4.2-5.4 M/uL Hemoglobin 8.8 12.0-16.0 g/dL Hematocrit 27.3 37-47 % Mean Corpuscular Volume 80.5 80-100 fL Mean Corpuscular Hemoglobin 26.0 25-34 pg Mean Corpuscular Hemoglobin Concent 32.2 32-36 g/dl RDW Standard Deviation 46.8 36.4-46.3 fL RDW Coefficient of Variation 16.0 11.5-14.5 % Platelet Count 262 130-400 K/uL Mean Platelet Volume 9.1 7.4-10.4 fL Sodium Level 136 136-145 mmol/L Potassium Level 4.4 3.5-5.1 mmol/L Chloride Level 105 98-107 mmol/L Carbon Dioxide Level 23 21-32 mmol/L Anion Gap 8.0 3-11 mmol/L Blood Urea Nitrogen 22 7-18 mg/dl Creatinine 1.01 0.60-1.20 mg/dl Est Creatinine Clear Calc Drug Dose 25.5 ml/min Estimated GFR () 57.2 Estimated GFR (Non- 49.3 BUN/Creatinine Ratio 21.8 10-20 Random Glucose 73 70-99 mg/dl Calcium Level 8.6 8.5-10.1 mg/dl Test 07/09/17 11:53 07/09/17 17:03 Range/Units Bedside Glucose 119 130 70-90 mg/dl
[2017-07-09] MEDS: SIMVASTATIN 10 MG TAB PO SCH (20:50)
[2017-07-09] MEDS: LISINOPRIL 20 MG TAB PO SCH (20:50)
[2017-07-09] MEDS: INSULIN GLARGINE SOLOSTAR 100 UNITS/ML 3 ML PEN SC SCH (20:57)
[2017-07-09 22:58] VITALS: BP 154/58; PULSE 56; TEMP 36.8; O2SAT 95
[2017-07-10] MEDS: ACETAMINOPHEN IV SCH ×2 (05:19→14:41)
[2017-07-10 07:02] VITALS: BP 180/64; PULSE 66; TEMP 36.8; O2SAT 97
[2017-07-10] MEDS: AMLODIPINE BESYLATE 5 MG TAB PO SCH (07:37)
[2017-07-10] MEDS: PANTOprazole SOD 40 MG TAB PO SCH (07:37)
[2017-07-10] MEDS: CARVEDILOL 12.5 MG TAB PO SCH ×2 (07:37→18:31)
[2017-07-10 08:26] LABS: CALCIUM 9.3 mg/dl (8.5-10.1); CREATININE 0.98 mg/dl (0.60-1.20); POTASSIUM 4.6 mmol/L (3.5-5.1)
[2017-07-10] MEDS: CALCIUM 600MG + VIT D 400 IU TAB PO SCH (09:34)
[2017-07-10] MEDS: DOCUSATE SODIUM 100 MG CAP PO SCH ×2 (09:34→21:23)
[2017-07-10] MEDS: INSULIN ASPART 100 UNITS/ML 3 ML PEN SC SCH ×4 (09:41→21:28)
[2017-07-10] MEDS: MULTIVITAMIN TAB PO SCH (09:54)
--- NOTE | 2017-07-10 10:11 | PROGRESS NOTE ---
DATE: 07/10/2017 CHIEF COMPLAINT: Type 2 odontoid fracture. PROGRESS: Nhung was seen and examined at bedside today. She was sitting up and eating breakfast. She had her C-collar off while she was eating. She said she still has some pain in her neck, but overall she was doing fairly well. She has no new complaints. PHYSICAL EXAMINATION: She has a bandage under her chin to prevent rubbing on the cervical collar. Cervical collar was off at this time. I did not do any range of motion of her neck. IMPRESSION: Type 2 odontoid fracture. PLAN: She will need to be in the cervical collar at all times except while eating for simple hygiene. Will give this a chance to heal on its own. She can follow up in the office with my partner Dr. Lawson also, his phone number is [phone]. She is orthopedically stable for discharge when medically ready and when a room is available.
[2017-07-10 10:36] VITALS: BP 145/62; PULSE 70; O2SAT 97
[2017-07-10 11:10] VITALS: BP 144/70; PULSE 64
[2017-07-10 15:07] VITALS: BP 135/52; PULSE 71; TEMP 36.9; O2SAT 95
[2017-07-10] MEDS ORDERED: TRAMADOL HCL 50 MG TAB PO PRN (16:00)
--- NOTE | 2017-07-10 19:17 | Progress Note ---
Medicine Progress Note Date & Time of Visit: Jul 10, 2017 at 15:45 . Subjective CC: Follow-up visit for cervical fracture. HPI: Mild neck pain. No weakness or sensory changes of upper or lower extremities. Pain left hip / buttock since fall. ROS: General- no fever, no chills Resp- no cough; no shortness of breath Cardiac- no chest pain, no edema GI- no nausea, no vomiting, no diarrhea - no dysuria, no difficulty voiding . Objective Last 8 Hrs Date Time Temp Pulse Resp B/P (MAP) Pulse Ox O2 Delivery O2 Flow Rate FiO2 07/10/17 15:50 Room Air 07/10/17 15:07 36.9 71 16 135/52 (79) 95 Room Air Physical Exam: General- lying in bed; no distress Neck- [place] J collar applied Lungs- clear to auscultation; no respiratory distress Cardiovascular- RRR; no gallop; no pretibial edema Abdomen- + bowel sounds, soft, nontender Extremities- no cyanosis; no calf tenderness; no hematoma, ecchymosis left hip / buttock Neuro- alert, oriented; motor strength upper and lower extremities grossly intact Skin- warm & dry . Laboratory Results: Last 24 Hours Test 07/09/17 20:31 07/10/17 07:37 07/10/17 08:02 07/10/17 12:02 Bedside Glucose 178 mg/dl 98 mg/dl 253 mg/dl Sodium Level 137 mmol/L Potassium Level 4.6 mmol/L Chloride Level 104 mmol/L Carbon Dioxide Level 25 mmol/L Anion Gap 8.0 mmol/L Blood Urea Nitrogen 18 mg/dl Creatinine 0.98 mg/dl Est Creatinine Clear Calc Drug Dose 26.3 ml/min Estimated GFR () 59.3 Estimated GFR (Non- 51.1 BUN/Creatinine Ratio 18.5 Random Glucose 91 mg/dl Calcium Level 9.3 mg/dl Test 07/10/17 16:46 Bedside Glucose 133 mg/dl Assessment & Plan CERVICAL FRACTURE CT demonstrated type II odontoid fracture and fractures of right and left ring of C1. Ortho Spine consulted. No need for surgical intervention at this time. Cervical collar. LEFT HIP / PELVIS PAIN Plain films did not show any fractures. Consider CT if pain persists. HYPERTENSION Continue amlodipine and lisinopril. Follow and titrate Rx. CKD III Serum creatinine today = 0.98. Follow. DM TYPE 2 FBS today = 98. PERNICIOUS ANEMIA Continue B12. VTE PROPHYLAXIS SCD's. Ambulate as able. DISPOSITION To be determined. Internal Medicine follow-up with Dr. Burrell. . Current Inpatient Medications: Current Inpatient Medications Medications (Trade) Dose Ordered Sig/Nusrat Route Start Time Stop Time Status Last Admin Dose Admin Acetaminophen (Tylenol Tab) 650 mg Q4H PRN PO 07/08/17 17:15 08/07/17 17:14 Future hold Al Hydrox/Mg Hydrox/Simethicone (Maalox Max Susp) 15 ml Q4H PRN PO 07/08/17 17:15 08/07/17 17:14 Magnesium Hydroxide (Milk Of Magnesia Susp) 30 ml Q6H PRN PO 07/08/17 17:15 08/07/17 17:14 Polyethylene (Miralax Powder Packet) 17 gm DAILY PRN PO 07/08/17 17:15 08/07/17 17:14 Amlodipine Besylate (Norvasc Tab) 5 mg DAILY PO 07/09/17 09:00 08/08/17 08:59 07/10/17 07:37 5 MG Insulin Glargine (Lantus Solostar Pen) 8 units QPM SC 07/08/17 21:00 08/07/17 20:59 07/09/17 20:57 8 UNITS Multivitamins (Multivitamin Tab) 1 tab DAILY PO 07/09/17 09:00 08/08/17 08:59 07/10/17 09:54 1 TAB Simvastatin (Zocor Tab) 10 mg QPM PO 07/08/17 21:00 08/07/17 20:59 07/09/17 20:50 10 MG Insulin Aspart (novoLOG ASPART) SLIDING SCALE If C... ACHS SC 07/08/17 21:00 08/07/17 20:59 07/10/17 18:33 2 UNITS Glucose (Glucose 40% Gel) 15-30 GRAMS 15 GRAMS... UD PRN PO 07/08/17 17:15 08/07/17 17:14 Glucose (Glucose Chew Tab) 4-8 Tablets 4 Tabl... UD PRN PO 07/08/17 17:15 08/07/17 17:14 Dextrose (Dextrose 50% 50ML Syringe) 25-50ML OF 50% DW IV FOR... UD PRN IV 07/08/17 17:15 08/07/17 17:14 Glucagon (Glucagon Inj) 1 mg UD PRN SQ 07/08/17 17:15 08/07/17 17:14 Docusate Sodium (coLACE CAP) 100 mg BID PO 07/08/17 21:00 08/07/17 20:59 07/10/17 09:34 100 MG Promethazine HCl 25 mg/Sodium Chloride 51 ml @ 204 mls/hr Q6H PRN IV 07/08/17 19:00 08/07/17 18:59 Hydralazine HCl (HydrALAZINE INJ) 10 mg Q8 PRN IV. 07/08/17 19:00 08/07/17 18:59 07/08/17 19:26 10 MG Calcium/Vitamin D (Caltrate Plus Tab) 1 tab DAILY PO 07/09/17 09:00 08/08/17 08:59 07/10/17 09:34 1 TAB Carvedilol (Coreg Tab) 12.5 mg BIDM PO 07/09/17 08:30 08/08/17 08:29 07/10/17 18:31 12.5 MG Pantoprazole Sodium (Protonix Tab) 40 mg DAILY PO 07/09/17 09:00 07/12/17 09:01 07/10/17 07:37 40 MG Lisinopril (Zestril Tab) 20 mg HS PO 07/09/17 21:00 08/07/17 20:59 07/09/17 20:50 20 MG Tramadol HCl (Ultram Tab) 25 mg Q6H PRN PO 07/10/17 16:00 08/09/17 15:59
[2017-07-10] MEDS: ACETAMINOPHEN 325 MG TAB PO PRN (20:21)
[2017-07-10] MEDS: SIMVASTATIN 10 MG TAB PO SCH (21:24)
[2017-07-10] MEDS: LISINOPRIL 20 MG TAB PO SCH (21:24)
[2017-07-10] MEDS: INSULIN GLARGINE SOLOSTAR 100 UNITS/ML 3 ML PEN SC SCH (21:27)
[2017-07-10 22:44] VITALS: BP 152/58; PULSE 69; TEMP 36.7; O2SAT 95
[2017-07-11 06:08] LABS: HEMATOCRIT 27.7 % (37-47); HEMOGLOBIN 8.8 g/dL (12.0-16.0)
[2017-07-11 06:43] LABS: CALCIUM 9.3 mg/dl (8.5-10.1); CREATININE 1.12 mg/dl (0.60-1.20); POTASSIUM 4.4 mmol/L (3.5-5.1)
[2017-07-11 07:01] VITALS: BP 159/60; PULSE 76; TEMP 36.7; O2SAT 96
[2017-07-11] MEDS: PANTOprazole SOD 40 MG TAB PO SCH (09:09)
[2017-07-11] MEDS: DOCUSATE SODIUM 100 MG CAP PO SCH (09:09)
[2017-07-11] MEDS: MULTIVITAMIN TAB PO SCH (09:09)
[2017-07-11] MEDS: AMLODIPINE BESYLATE 5 MG TAB PO SCH (09:10)
[2017-07-11] MEDS: CALCIUM 600MG + VIT D 400 IU TAB PO SCH (09:10)
[2017-07-11] MEDS: CARVEDILOL 12.5 MG TAB PO SCH (09:10)
[2017-07-11] MEDS: ACETAMINOPHEN 325 MG TAB PO PRN ×2 (09:17→13:27)
[2017-07-11] MEDS: INSULIN ASPART 100 UNITS/ML 3 ML PEN SC SCH ×2 (09:19→13:32)
--- NOTE | 2017-07-11 10:52 | DIAGNOSTIC IMAGING REPORT ---
PELVIS NO IV/ORAL CONT (CT) CLINICAL HISTORY: fall, left hip / pelvic pain pain TECHNIQUE: Transaxial acquisition. Multi axial reformatted images. COMPARISON STUDY: None FINDINGS: Nondisplaced hairline cortical fracture of the anterior sacrum. This extends from the inferior to superior aspect of the sacrum with a short segment extension to the left superior sacrum. Sacroiliac joints appear symmetric. There is no evidence for significant bony distraction. Bony mineralization is diminished. No additional acute bony abnormality. Hips appear generally symmetric. Moderate degenerative change is noted. Muscular structures appear symmetric. IMPRESSION: 1. Nondisplaced vertical hairline fracture mid sacrum. 2. Additional nondisplaced hairline extension to the left superior sacral wing. 3. No evidence for bony displacement or distraction. 4. No additional acute bony abnormality. 5. Osteopenia. The above report was generated using voice recognition software. It may contain grammatical, syntax or spelling errors. Electronically signed by: Doug Buck M.D. 07/11/2017 10:50 AM Dictated Date/Time: 07/11/2017 10:42 AM
--- NOTE | 2017-07-11 13:47 | Progress Note ---
Medicine Progress Note Date & Time of Visit: Jul 11, 2017 at 10:00 . Subjective CC: Follow-up visit for cervical fracture. HPI: Mild neck pain. No weakness or sensory changes of upper or lower extremities. Experiencing persistent pain left sacrum / buttock since fall, worse when standing. ROS: General- no fever, no chills Resp- no cough; no shortness of breath Cardiac- no chest pain, no edema GI- no nausea, no vomiting, no diarrhea - no dysuria, no difficulty voiding . Objective Last 8 Hrs Date Time Temp Pulse Resp B/P (MAP) Pulse Ox O2 Delivery O2 Flow Rate FiO2 07/11/17 07:01 36.7 76 18 159/60 (93) 96 Room Air Physical Exam: General- no distress Neck- [place] J collar applied Lungs- clear to auscultation; no respiratory distress Cardiovascular- RRR; no gallop; no pretibial edema Abdomen- + bowel sounds, soft, nontender Extremities- no cyanosis; no calf tenderness Neuro- alert, oriented; motor strength upper and lower extremities grossly intact Skin- warm & dry . Laboratory Results: Last 24 Hours Test 07/10/17 16:46 07/10/17 20:51 07/11/17 05:26 07/11/17 08:12 Bedside Glucose 133 mg/dl 212 mg/dl 148 mg/dl Hemoglobin 8.8 g/dL Hematocrit 27.7 % Sodium Level 133 mmol/L Potassium Level 4.4 mmol/L Chloride Level 101 mmol/L Carbon Dioxide Level 24 mmol/L Anion Gap 8.0 mmol/L Blood Urea Nitrogen 19 mg/dl Creatinine 1.12 mg/dl Est Creatinine Clear Calc Drug Dose 23.0 ml/min Estimated GFR () 50.4 Estimated GFR (Non- 43.5 BUN/Creatinine Ratio 16.5 Random Glucose 131 mg/dl Calcium Level 9.3 mg/dl Test 07/11/17 12:08 Bedside Glucose 215 mg/dl Assessment & Plan CERVICAL FRACTURE CT demonstrated type II odontoid fracture and fractures of right and left ring of C1. Ortho Spine consulted (Dr. Lawson). No need for surgical intervention at this time. Cervical collar. Ortho follow-up with Dr. Lawson. LEFT HIP / PELVIS PAIN Plain films did not show any fractures. CT of pelvis demonstrated nondisplaced hairline fractures of mid sacrum and left superior sacral wing. Analgesics. Weight bearing as tolerated. OSTEOPOROSIS Vitamin D level pending at time of discharge. Supplemental calcium + D. HYPERTENSION -I-j-i-[id number]-i-n-u-e- -j-r-r-o-k-b-i-l-o-l--,- -s-b-o-q-q-j-p-i-n-e--,- -a-n-d- -l-u-x-j-k-h-p-r-i-l-.- Continue carvedilol and lisinopril. [Correction 07/11/1813:00 Medication reconciliation reviewed and corrected. No longer taking amlodipine.] Follow and titrate Rx. CKD III Serum creatinine today = 1.12. Follow. DM TYPE 2 FBS today = 148. Discharge on usual regimen (Prandin, Lantus). PERNICIOUS ANEMIA Hgb 8.8. Continue B12. Follow. VTE PROPHYLAXIS SCD's. Transition to SQ heparin and continue until ambulatory. Ambulate as able. DISPOSITION Arrangements being made for transfer to [facility] for inpatient rehab. Internal Medicine follow-up with Dr. Burrell. Orthopedics follow-up with Dr. Lawson. . Current Inpatient Medications: Current Inpatient Medications Medications (Trade) Dose Ordered Sig/Nusrat Route Start Time Stop Time Status Last Admin Dose Admin Acetaminophen (Tylenol Tab) 650 mg Q4H PRN PO 07/08/17 17:15 08/07/17 17:14 Future hold 07/11/17 13:27 650 MG Al Hydrox/Mg Hydrox/Simethicone (Maalox Max Susp) 15 ml Q4H PRN PO 07/08/17 17:15 08/07/17 17:14 Magnesium Hydroxide (Milk Of Magnesia Susp) 30 ml Q6H PRN PO 07/08/17 17:15 08/07/17 17:14 Polyethylene (Miralax Powder Packet) 17 gm DAILY PRN PO 07/08/17 17:15 08/07/17 17:14 Amlodipine Besylate (Norvasc Tab) 5 mg DAILY PO 07/09/17 09:00 08/08/17 08:59 07/11/17 09:10 5 MG Insulin Glargine (Lantus Solostar Pen) 8 units QPM SC 2/8/18 21:00 08/07/17 20:59 07/10/17 21:27 8 UNITS Multivitamins (Multivitamin Tab) 1 tab DAILY PO 07/09/17 09:00 08/08/17 08:59 07/11/17 09:09 1 TAB Simvastatin (Zocor Tab) 10 mg QPM PO 07/08/17 21:00 08/07/17 20:59 07/10/17 21:24 10 MG Insulin Aspart (novoLOG ASPART) SLIDING SCALE If C... ACHS SC 07/08/17 21:00 08/07/17 20:59 07/11/17 13:32 6 UNITS Glucose (Glucose 40% Gel) 15-30 GRAMS 15 GRAMS... UD PRN PO 07/08/17 17:15 08/07/17 17:14 Glucose (Glucose Chew Tab) 4-8 Tablets 4 Tabl... UD PRN PO 07/08/17 17:15 08/07/17 17:14 Dextrose (Dextrose 50% 50ML Syringe) 25-50ML OF 50% DW IV FOR... UD PRN IV 07/08/17 17:15 08/07/17 17:14 Glucagon (Glucagon Inj) 1 mg UD PRN SQ 07/08/17 17:15 08/07/17 17:14 Docusate Sodium (coLACE CAP) 100 mg BID PO 07/08/17 21:00 08/07/17 20:59 07/11/17 09:09 100 MG Promethazine HCl 25 mg/Sodium Chloride 51 ml @ 204 mls/hr Q6H PRN IV 07/08/17 19:00 08/07/17 18:59 Hydralazine HCl (HydrALAZINE INJ) 10 mg Q8 PRN IV. 07/08/17 19:00 08/07/17 18:59 07/08/17 19:26 10 MG Calcium/Vitamin D (Caltrate Plus Tab) 1 tab DAILY PO 07/09/17 09:00 08/08/17 08:59 07/11/17 09:10 1 TAB Carvedilol (Coreg Tab) 12.5 mg BIDM PO 07/09/17 08:30 08/08/17 08:29 07/11/17 09:10 12.5 MG Pantoprazole Sodium (Protonix Tab) 40 mg DAILY PO 07/09/17 09:00 07/12/17 09:01 07/11/17 09:09 40 MG Lisinopril (Zestril Tab) 20 mg HS PO 07/09/17 21:00 08/07/17 20:59 07/10/17 21:24 20 MG Tramadol HCl (Ultram Tab) 25 mg Q6H PRN PO 07/10/17 16:00 08/09/17 15:59
[2017-07-11] MEDS ORDERED: TRAM-10 PO (14:01)
[2017-07-11] MEDS ORDERED: HPRIS5M SQ (14:01)
--- NOTE | 2017-07-11 14:13 | Discharge Instructions ---
Discharge Instructions Date of Service Jul 11, 2017. Admission Reason for Admission: Cervical Vertebral Closed Fracture, Fall Discharge Discharge Diagnosis / Problem: cervical fractures C1 & C2, hairline nondisplaced sacral fractures Discharge Goals Goal(s): Decrease discomfort, Improve function, Improve disease control Activity Recommendations Activity Level: Assistance Required Therapies: Physical Therapy, Occupational Therapy Weightbearing Status: Left weightbearing (as tolerated) . Additional Information Patient informed of condition: Yes Advance Directives: No DNR: No Level of Care: Acute Rehab Communicable Disease: No Prognosis: Improving Bryson Catheter: No Instructions / Follow-Up Instructions / Follow-Up Thank you for receiving this patient in transfer. Please call if you have any questions. Ez Radford . Current Hospital Diet Patient's current hospital diet: AHA Diet (Heart Healthy), Diabetes Type 2 Diet Discharge Diet Recommended Diet: AHA Diet (Heart Healthy), Diabetes Type 2 Diet Procedures Procedures Performed: CT head CT cervical spine CT pelvis Pending Studies Studies pending at discharge: no Physician Orders On Transfer Special Precautions: fall precautions . Vital Signs: routine . Weigh: routine . Additional Orders: Cook J cervical collar. Fingerstick blood sugars before meals and at bedtime. Please arrange for Orthopedics follow-up with Dr. Lawson next week. Please arrange for Internal Medicine follow-up with Dr. Burrell at time of discharge from your facility. . Laboratory Results Hemoglobin A1c Test 07/11/17 05:26 Range/Units Medical Emergencies . Who to Call and When: Medical Emergencies: If at any time you feel your situation is an emergency, please call 911 immediately. . Non-Emergent Contact Non-Emergency issues call your: Primary Care Provider, Hospital Doctor, Surgeon (Orthopedic) . . "Provider Documentation" section prepared by Ez Radford. . Core Measure Problem Core Measures: None [place] Drug Monitoring Program Search Results: patient reviewed within database, no issues identified
--- NOTE | 2017-07-11 14:18 | Discharge Summary ---
Discharge Summary Date of Service Jul 11, 2017. Discharge Summary Admission Date: Jul 08, 2017 at 17:03 Discharge Date: Jul 11, 2017 Discharge Disposition: Rehab ([facility]) Principal Diagnosis: cervical fractures (type II odontoid fracture and fractures of right and left ring of C1) hairline nondisplaced fractures of sacrum . Secondary Diagnoses/Problems: Chronic and Resolved Medical Problems: (1) Chronic lower back pain Status: Chronic (2) CKD (chronic kidney disease), stage III Status: Chronic (3) Diabetes mellitus, type II Status: Chronic (4) HLD (hyperlipidemia) Status: Chronic (5) HTN (hypertension) Status: Chronic (6) Osteoarthritis Status: Chronic (7) Pernicious anemia Status: Chronic . Procedures: CT head CT cervical spine CT pelvis PT OT . Consultations: Ortho Spine with Dr. Lawson . Medication Reconciliation New Medications: Heparin Sod (Porcine) (Heparin Sodium) 5,000 Unit/0.5 Ml Inj 5000 UNITS SQ Q12 for 30 Days, SYR Continue until ambulatory. Tramadol (Ultram) 50 Mg Tab 25 MG PO Q6H PRN for severe pain for 30 Days, #60 TAB Continued Medications: Acetaminophen (Tylenol Extra Strength) 500 Mg Tab 1 TAB PO Q6 PRN for Pain Aspirin (Aspirin Ec) 81 Mg Tab 81 MG PO DAILY Calcium/Vitamin D (Os-Willy 500 Plus D) Tab 1 TAB PO DAILY, TAB Carvedilol (Coreg) 12.5 Mg Tab 12.5 MG PO BIDM, TAB 1 Refill Cyanocobalamin (Cyanocobalamin) 1,000 Mcg/Ml Inj 1000 MCG INJ MONTHLY Insulin Glargine (Lantus Solostar) 100 Unit/Ml Inj 8 UNITS SC QPM, PEN Lactobacillus (Acidophilus) 1 Cap Cap 1 CAP PO DAILY Lisinopril (Lisinopril) 20 Mg Tab 20 MG PO HS Multivitamin (Multivitamin) Tab 1 TAB PO DAILY, 0 Refills Pantoprazole (Protonix) 40 Mg Tab 40 MG PO DAILY, #30 TAB Repaglinide (Prandin) 2 Mg Tab 2 MG PO AC, TAB Simvastatin (Zocor) 10 Mg Tab 10 MG PO QPM, 0 Refills Admission Information HPI (per Admitting provider): This is an 87yo F with PMH of DM II, HTN, CKD III, HLD and pernicious anemia who presents after a mechanical fall last 9 days ago. Patient lives alone and ambulates by cane. Was walking to the bathroom when her cane got caught and she fell onto the floor in a twisting motion, hitting her head on the counter and falling onto her backside. Was unable to get up from floor for 3 hours. Scooted herself into her bedroom phone to call her niece. It took her niece and another person to get patient back in bed. Reports that she was not in enough pain to see her PCP or go to the ED. Has been taking extra strength Tylenol for pain from fall. Noticed a bump form on her head but states that she did not have any headache or confusion. Has bruising on her left arm and back. Niece noticed that patient continued to seem generally weak, ambulating very slowly, so she made appointment with PCP. Patient was sent from the office for further evaluation. Endorses back and knee pain (chronic), generalized weakness, decreased PO intake and nausea. Had an episode of vomiting during our interview after being given morphine. Denies any fever, chills, lightheadedness, dizziness , headache, LOC, visual changes, palpitations, chest pain, SOB, abdominal pain, dysuria, melena, hematochezia or LE swelling. Denies being on blood thinners. . Physical Exam (per Admitting): General Appearance: + mild distress, + pertinent finding (Sitting upright in med, breating comfortably) Head: normocephalic, atraumatic, + evidence of trama (Hematoma on posterior aspect of skull. Some bruising on L frontal region) Eyes: normal inspection, PERRL, sclerae normal ENT: normal ENT inspection (hard of hearing ), pharynx normal (moist mucous membranes ) Neck: + pertinent finding (C-collar ) Respiratory/Chest: chest non-tender, lungs clear, normal breath sounds, no respiratory distress, no accessory muscle use Cardiovascular: regular rate, rhythm, no murmur, normal peripheral pulses Abdomen/GI: non tender, soft, no organomegaly Back: normal inspection Extremities/Musculoskelatal: normal inspection, no calf tenderness, no pedal edema Neurologic/Psych: dial polisher II-XII nml as tested, no motor/sensory deficits, alert , normal mood/affect, oriented x 3 Skin: warm/dry, no rash, + pallor, + pertinent finding (Bruising on L side of back, L arm. No deformities ) Hospital Course CERVICAL FRACTURE CT demonstrated type II odontoid fracture and fractures of right and left ring of C1. Ortho Spine consulted (Dr. Lawson). No need for surgical intervention at this time. Cervical collar. Ortho follow-up with Dr. Lawson. LEFT HIP / PELVIS PAIN Plain films did not show any fractures. CT of pelvis demonstrated nondisplaced hairline fractures of mid sacrum and left superior sacral wing. Analgesics. Weight bearing as tolerated. OSTEOPOROSIS Vitamin D level pending at time of discharge. Supplemental calcium + D. HYPERTENSION Continue lisinopril and carvedilol. Follow and titrate Rx. CKD III Serum creatinine day of discharge was 1.12. Follow. DM TYPE 2 FBS day of discharge was 148. Discharge on usual regimen (Prandin, Lantus). PERNICIOUS ANEMIA Hgb 8.8. Continue B12. Follow. VTE PROPHYLAXIS SCD's. Transition to SQ heparin and continue until ambulatory. Ambulate as able. DISPOSITION Arrangements being made for transfer to [facility] for inpatient rehab. Internal Medicine follow-up with Dr. Burrell. Orthopedics follow-up with Dr. Lawson. . Total time spent on discharge = 45 min. This includes examination of the patient, discharge planning, medication reconciliation, and communication with other providers. . Discharge Instructions Date of Service Jul 11, 2017. Admission Reason for Admission: Cervical Vertebral Closed Fracture, Fall Discharge Discharge Diagnosis / Problem: cervical fractures C1 & C2, hairline nondisplaced sacral fractures Discharge Goals Goal(s): Decrease discomfort, Improve function, Improve disease control Activity Recommendations Activity Level: Assistance Required Therapies: Physical Therapy, Occupational Therapy Weightbearing Status: Left weightbearing (as tolerated) . Additional Information Patient informed of condition: Yes Advance Directives: No DNR: No Level of Care: Acute Rehab Communicable Disease: No Prognosis: Improving Bryson Catheter: No Instructions / Follow-Up Instructions / Follow-Up Thank you for receiving this patient in transfer. Please call if you have any questions. Ez Radford . Current Hospital Diet Patient's current hospital diet: AHA Diet (Heart Healthy), Diabetes Type 2 Diet Discharge Diet Recommended Diet: AHA Diet (Heart Healthy), Diabetes Type 2 Diet Procedures Procedures Performed: CT head CT cervical spine CT pelvis Pending Studies Studies pending at discharge: no Physician Orders On Transfer Special Precautions: fall precautions . Vital Signs: routine . Weigh: routine . Additional Orders: [place] J cervical collar. Fingerstick blood sugars before meals and at bedtime. Please arrange for Orthopedics follow-up with Dr. Lawson next week. Please arrange for Internal Medicine follow-up with Dr. Burrell at time of discharge from your facility. . Laboratory Results Hemoglobin A1c Test 07/11/17 05:26 Range/Units Medical Emergencies . Who to Call and When: Medical Emergencies: If at any time you feel your situation is an emergency, please call 911 immediately. . Non-Emergent Contact Non-Emergency issues call your: Primary Care Provider, Hospital Doctor, Surgeon (Orthopedic) . . "Provider Documentation" section prepared by Ez Radford. . Core Measure Problem Core Measures: None [place] Drug Monitoring [place] Search Results: patient reviewed within database, no issues identified . Additional Copies To Ez Lawson, DO; Wilfred Burrell, RickyO.
[2017-07-11 14:44] VITALS: BP 144/72; PULSE 71; TEMP 36.8; O2SAT 97
[2017-07-11 15:50] VITALS: BP 144/72; PULSE 71; TEMP 36.8; O2SAT 97
[2017-07-12 06:41] LABS: HEMOGLOBIN A1C 8.5 % (4.5-5.6)
--- NOTE | 2017-07-15 12:40 | EDITING REQUIRED CODING QUERY ---
CODING QUERY To promote full compliance with coding requirements relating to patient care, provider participation is requested in all cases of community relations assistant uncertainty. Please assist us with the question(s) below: Coding Question(s): Patient was diagnosed with cervical vertebra fractures; she also has a diagnosis of osteoporosis. In your clinical opinion would you say this patient suffered these fractures due to her osteoporosis? Note: The definition of an "osteoporotic fracture" as defined by coding guidelines is "any patient with known osteoporosis who suffers a fracture, even if the patient had a minor fall or trauma, if that fall or trauma would not usually break a normal, healthy bone." Physician's Response(s): _x__ Osteoporotic fractures of vertebra ___ Fractures of vertebra unrelated to osteoporosis ___ Other (please specify) Thank you Zamzam Wu Principal Diagnosis: "_that condition established after study, to be chiefly responsible for occasioning the admission of the patient to the hospital for care." Co-Existing Principal Diagnosis: "_when two or more diagnoses equally meet the criteria for principal diagnosis as determined by the circumstances of admission, diagnostic work up, and/or therapy provided, and the Alphabetic Index, Tabular List, or another coding guideline does not provide sequencing direction, any one of the diagnoses may be sequenced first." "When the physician has documented what appears to be a current diagnosis in the body of the record, but has not included the diagnosis in the final diagnostic statement, the physician should be asked whether the diagnosis should be added." (Source [facility]oding [facility] 2 QTR90. p3-4)
== END 2017-07-11 16:31 | DRG 544 ==
LOC: C.EDB 13:18 → C.MSW 17:03 → ENRESERV 17:24
PROVIDERS: ADMIT Hospitalist; ATTEND Hospitalist
DX: M80.08XA Age-related osteoporosis with current pathological fracture, vertebra(e), initial encounter for fracture (principal); W18.09XA Striking against other object with subsequent fall, initial encounter; Y93.01 Activity, walking, marching and hiking; R11.2 Nausea with vomiting, unspecified; T40.2X5A Adverse effect of other opioids, initial encounter; I12.9 Hypertensive chronic kidney disease with stage 1 through stage 4 chronic kidney disease, or unspecified chronic kidney disease; E11.22 Type 2 diabetes mellitus with diabetic chronic kidney disease; D51.0 Vitamin B12 deficiency anemia due to intrinsic factor deficiency; N18.3 Chronic kidney disease, stage 3 (moderate); E78.5 Hyperlipidemia, unspecified; Y92.019 Unspecified place in single-family (private) house as the place of occurrence of the external cause; Y99.8 Other external cause status; Z79.4 Long term (current) use of insulin; Z79.82 Long term (current) use of aspirin; Z79.84 Long term (current) use of oral hypoglycemic drugs; Z79.899 Other long term (current) drug therapy; Z88.2 Allergy status to sulfonamides